=== PATIENT | female | born 1975 | race Caucasian/White ===

== ENCOUNTER 2020-06-11 06:04 | Day surgery (SDC) | payer OTHER ==
[~2020-06-11] VITALS: Ht 159 cm; Wt 113.0 kg
[~2020-06-11 06:04] MED LIST: B COMPLEX1 EACH PO; BENTYL10 MG PO; BIOTIN1 MG PO; DULOXETINE HCL60 MG PO; LISINOPRIL-HCT1 EACH PO; MELOXICAM15 MG PO; OMEPRAZOLE40 MG PO; SYMBICORT 16010.2 GM INH; SYNTHROID100 MCG PO; TURMERIC 500 M1 EACH PO; XARELTO10 MG PO; ZOFRAN4 MG PO; ZYRTEC10 MG PO
[2020-06-12 06:15] LABS: BASOPHIL 0.4 % (0-2); EOSINOPHIL 0.4 % (0-5); HCT 40.6 % (37.0-47.0); HGB 12.7 g/dl (12.5-16.0); LYMPHOCYTE 12.9 % (15-48); MCH 30.5 pg (25.0-31.0); MCHC 31.3 g/dL (32.0-36.0); MCV 97.4 fL (78.0-100.0); MONOCYTE 10.3 % (0-12); MPV 10.3 fL (6.0-9.5); NEUTROPHIL 75.7 % (41-80); NRBC 0; PLT 330 K/uL (150-400); RBC 4.17 M/uL (4.20-5.40); RDW 13.4 % (11.5-14.0); WBC 12.5 K/uL (4.0-10.5)
[2020-06-12 07:02] LABS: CREATININE 0.76 mg/dL (0.51-0.95); POTASSIUM 4.6 mmol/L (3.5-5.1)
[2020-06-12] MEDS ORDERED: ZOFRAN4 M1 PO (09:09)
[2020-06-12] MEDS ORDERED: BACLOFEN 10MG T10 MG PO (09:09)
[2020-06-12] MEDS ORDERED: FEOSOL325 MG PO (09:09)
[2020-06-12] MEDS ORDERED: XARELTO10 MG PO (09:11)
--- NOTE | 2020-06-12 11:27 | NUR ---
TC BULMARO CANTRELL AT [facility]. PT HAROLDOTO COPAY IS $55.00. ADVISED PT. AND SHE WAS OK WITH CANALES.
[2020-08-06] MEDS ORDERED: PERCOCET 5-3251 EACH PO (06:14)
== END 2020-06-12 14:25 | disposition home or self-care (01) ==
LOC: FMS 06:04 → FAS 06:04 → FTCU 11:43 → FMS 11:43 → FAS 06-12 14:25
PROVIDERS: Legal Medicine
DX: M17.12 Unilateral primary osteoarthritis, left knee (principal); E66.01 Morbid (severe) obesity due to excess calories; K21.9 Gastro-esophageal reflux disease without esophagitis; I10 Essential (primary) hypertension; F41.9 Anxiety disorder, unspecified; G89.18 Other acute postprocedural pain; J45.909 Unspecified asthma, uncomplicated; Z88.8 Allergy status to other drugs, medicaments and biological substances; Z87.442 Personal history of urinary calculi; Z98.890 Other specified postprocedural states; Z79.899 Other long term (current) drug therapy; Z90.49 Acquired absence of other specified parts of digestive tract; Z95.1 Presence of aortocoronary bypass graft; Z90.710 Acquired absence of both cervix and uterus; Z96.651 Presence of right artificial knee joint; Z20.822 Contact with and (suspected) exposure to COVID-19
CPT/HCPCS: 36415; 80048; 85025; 86850; 86900; 86901; 94010; 94640; 97116; 97162; 97165; 97530-GP; C1713; C1776; J0171; J0697; J1100; J1170; J2250; J2270; J2370; J2704; J2795; J2800; J3010; J7050; J7120

== ENCOUNTER 2020-06-14 19:46 | Emergency (ER) | payer OTHER ==
[~2020-06-14 19:46] MED LIST changes: +BACLOFEN 10MG T10 MG PO; +FEOSOL325 MG PO; +ZOFRAN4 M1 PO
[2020-06-14 21:39] LABS: BASOPHIL 0.6 % (0-2); EOSINOPHIL 3.4 % (0-5); HCT 35.9 % (37.0-47.0); HGB 11.3 g/dl (12.5-16.0); LYMPHOCYTE 20.9 % (15-48); MCH 30.3 pg (25.0-31.0); MCHC 31.5 g/dL (32.0-36.0); MCV 96.2 fL (78.0-100.0); MONOCYTE 8.9 % (0-12); MPV 9.9 fL (6.0-9.5); NEUTROPHIL 65.7 % (41-80); NRBC 0; PLT 349 K/uL (150-400); RBC 3.73 M/uL (4.20-5.40); RDW 13.1 % (11.5-14.0); WBC 10.1 K/uL (4.0-10.5)
[2020-06-14 21:55] LABS: ALBUMIN 2.8 g/dL (3.4-5.0); ALKALINE PHOSHATASE 66 U/L (46-116); ALT 42 U/L (14-59); AST 27 U/L (15-37); BILIRUBIN - TOTAL 0.7 mg/dL (0.2-1.0); BUN 13 mg/dL (7-18); BUN/CREAT RATIO (CALC) 15.7 RATIO; C-REACTIVE PROTEIN >18.00 mg/dL (<=0.90); CHLORIDE 99 mmol/L (98-107); CO2 (BICARBONATE) 32 mmol/L (21-32); CREATININE 0.83 mg/dL (0.51-0.95); GLOBULIN (CALCULATION) 4.2 g/dL; GLUCOSE 106 mg/dL (74-106); POTASSIUM 4.1 mmol/L (3.5-5.1)
[2020-08-06] MEDS ORDERED: PERCOCET 5-3251 EACH PO (06:14)
== END 2020-06-14 23:37 | disposition home or self-care (01) ==
LOC: FER 19:46
PROVIDERS: Emergency Medicine
DX: T81.89XA Other complications of procedures, not elsewhere classified, initial encounter (principal); I10 Essential (primary) hypertension; E07.9 Disorder of thyroid, unspecified; Z88.6 Allergy status to analgesic agent; Z79.899 Other long term (current) drug therapy; Z79.01 Long term (current) use of anticoagulants; Z98.890 Other specified postprocedural states; Y83.4 Other reconstructive surgery as the cause of abnormal reaction of the patient, or of later complication, without mention of misadventure at the time of the procedure
CPT/HCPCS: 36415; 80053; 84145; 85025; 86140; 93971

== ENCOUNTER → 2020-08-06 | Day surgery (SDC) | payer OTHER ==
[~2020-08-06] MED LIST changes: +PERCOCET 5-3251 EACH PO
[2020-08-06 06:58] LABS: BUN/CREAT RATIO (CALC) 16.7 RATIO; CREATININE 0.84 mg/dL (0.51-0.95); POTASSIUM 4.4 mmol/L (3.5-5.1)
== END | disposition home or self-care (01) ==
LOC: FAS 05:53
PROVIDERS: Anesthesiology
DX: M24.662 Ankylosis, left knee (principal); M76.892 Other specified enthesopathies of left lower limb, excluding foot; J45.909 Unspecified asthma, uncomplicated; I10 Essential (primary) hypertension; E03.9 Hypothyroidism, unspecified; K21.9 Gastro-esophageal reflux disease without esophagitis; Z20.822 Contact with and (suspected) exposure to COVID-19; Z90.49 Acquired absence of other specified parts of digestive tract; Z96.653 Presence of artificial knee joint, bilateral; Z88.6 Allergy status to analgesic agent; Z79.899 Other long term (current) drug therapy
CPT/HCPCS: 36415; 80048; J0171; J0735; J1100; J2001; J2250; J2704; J7120

== ENCOUNTER 2020-09-26 14:52 | Emergency (ER) | payer OTHER ==
[2020-09-26 16:22] LABS: BILIRUBIN - TOTAL 0.4 mg/dL (0.2-1.0); BUN/CREAT RATIO (CALC) 17.5 RATIO; CREATININE 0.57 mg/dL (0.51-0.95); GLOBULIN (CALCULATION) 3.7 g/dL; TOTAL PROTEIN 7.7 g/dL (6.4-8.2)
[2020-09-26 16:25] LABS: BILIRUBIN NEGATIVE (NEGATIVE); BLOOD NEGATIVE Ery/uL (NEGATIVE); CLARITY CLEAR (CLEAR); COLOR YELLOW (YELLOW); GLUCOSE (U) NORMAL (NORMAL); LEUKOCYTES NEGATIVE Leu/uL (NEGATIVE); NITRITE NEGATIVE (NEGATIVE); PROTEIN NEGATIVE (NEGATIVE); UROBILINOGEN 0.2 mg/dL (0.2-1.0)
[2020-09-26 16:47] LABS: BASOPHIL 1.1 % (0-2); EOSINOPHIL 2.9 % (0-5); HCT 42.4 % (37.0-47.0); HGB 13.7 g/dl (12.5-16.0); MCH 30.2 pg (25.0-31.0); MCHC 32.3 g/dL (32.0-36.0); MCV 93.6 fL (78.0-100.0); MONOCYTE 7.9 % (0-12); NEUTROPHIL 63.8 % (41-80); NRBC 0; PLT 367 K/uL (150-400); RBC 4.53 M/uL (4.20-5.40); RDW 13.4 % (11.5-14.0); WBC 7.3 K/uL (4.0-10.5)
== END 2020-09-26 18:57 | disposition home or self-care (01) ==
LOC: FER 14:52
PROVIDERS: Nurse Practitioner Family
DX: K59.00 Constipation, unspecified (principal); N20.0 Calculus of kidney; I10 Essential (primary) hypertension; Z90.49 Acquired absence of other specified parts of digestive tract; Z98.890 Other specified postprocedural states; Z88.6 Allergy status to analgesic agent
CPT/HCPCS: 36415; 80053; 81003; 85025; J7030; Q9967

== ENCOUNTER 2021-03-19 20:50 | Emergency (ER) | payer OTHER | END 2021-03-19 21:49 | disposition left against medical advice (07) | LOC: FER 20:50 | DX: R07.89 Other chest pain (principal); Z53.8 Procedure and treatment not carried out for other reasons | CPT/HCPCS: 93005 ==

== ENCOUNTER 2021-06-07 14:43 | Emergency (ER) | payer OTHER ==
[2021-06-07 15:27] LABS: BASOPHIL 1.1 % (0-2); EOSINOPHIL 3.7 % (0-5); HCT 44.6 % (37.0-47.0); HGB 14.6 g/dl (12.5-16.0); LYMPHOCYTE 26.5 % (15-48); MCH 30.8 pg (25.0-31.0); MCHC 32.7 g/dL (32.0-36.0); MCV 94.1 fL (78.0-100.0); MONOCYTE 8.6 % (0-12); MPV 9.5 fL (6.0-9.5); NEUTROPHIL 59.6 % (41-80); NRBC 0; PLT 370 K/uL (150-400); RBC 4.74 M/uL (4.20-5.40); RDW 12.7 % (11.5-14.0); WBC 7.6 K/uL (4.0-10.5)
[2021-06-07 15:45] LABS: ALBUMIN 3.3 g/dL (3.4-5.0); BILIRUBIN - TOTAL 0.5 mg/dL (0.2-1.0); BUN/CREAT RATIO (CALC) 12.8 RATIO; CREATININE 0.86 mg/dL (0.51-0.95); GLOBULIN (CALCULATION) 3.6 g/dL; TOTAL PROTEIN 6.9 g/dL (6.4-8.2)
== END 2021-06-07 17:41 | disposition home or self-care (01) ==
LOC: FER 14:43
PROVIDERS: Emergency Medicine
DX: R07.89 Other chest pain (principal); I10 Essential (primary) hypertension; E03.9 Hypothyroidism, unspecified; Z88.5 Allergy status to narcotic agent; Z79.890 Hormone replacement therapy; Z79.899 Other long term (current) drug therapy
CPT/HCPCS: 36415; 71045; 71275; 80053; 84484; 85025; 85379; 93005; C9113; Q9967

== ENCOUNTER 2021-08-22 13:18 | Emergency (ER) | payer OTHER ==
[2021-08-22 14:00] LABS: BASOPHIL 0.9 % (0-2); EOSINOPHIL 1.9 % (0-5); HCT 43.8 % (37.0-47.0); LYMPHOCYTE 22.2 % (15-48); MCH 30.1 pg (25.0-31.0); MCV 94.2 fL (78.0-100.0); MONOCYTE 7.7 % (0-12); MPV 9.6 fL (6.0-9.5); NRBC 0; PLT 378 K/uL (150-400); RBC 4.65 M/uL (4.20-5.40); RDW 13.3 % (11.5-14.0); WBC 7.5 K/uL (4.0-10.5)
[2021-08-22 14:14] LABS: BUN/CREAT RATIO (CALC) 14.1 RATIO; CREATININE 0.92 mg/dL (0.51-0.95); POTASSIUM 3.9 mmol/L (3.5-5.1)
== END 2021-08-22 16:24 | disposition left against medical advice (07) ==
LOC: FER 13:18
PROVIDERS: Emergency Medicine
DX: M94.0 Chondrocostal junction syndrome [Tietze] (principal); I10 Essential (primary) hypertension; Z88.8 Allergy status to other drugs, medicaments and biological substances; Z88.5 Allergy status to narcotic agent; Z88.6 Allergy status to analgesic agent; Z53.29 Procedure and treatment not carried out because of patient's decision for other reasons
CPT/HCPCS: 36415; 71046; 71275; 80048; 84484; 85025; 85379; 93005; Q9967